=== PATIENT | male | born 1960 | race Caucasian/White ===

== ENCOUNTER → 2021-01-12 | Outpatient (CLI) | payer OTHER ==
[~2021-01-12] MED LIST: SPIRIVA HANDIH18 MCG INH; TURDOZA INH
== END ==
LOC: KOH-I 14:21
DX: R91.8 Other nonspecific abnormal finding of lung field (principal)
CPT/HCPCS: 71250

== ENCOUNTER → 2022-03-08 | Outpatient (CLI) | payer OTHER | LOC: KOH-I 10:32 | DX: R91.8 Other nonspecific abnormal finding of lung field (principal); N13.2 Hydronephrosis with renal and ureteral calculous obstruction | CPT/HCPCS: 71250 ==